=== PATIENT | male | born 1955 | race Caucasian/White ===

== ENCOUNTER 2018-02-28 14:59 | Emergency (ER) | payer BC ==
[~2018-02-28] VITALS: Ht 165.1 cm; Wt 68.3 kg
[~2018-02-28 14:59] MED LIST: AMIT25TA9 PO; LIP40 PO; LISI-604 PO
[2018-02-28] MEDS ORDERED: ASPIRIN 81MG TABLET PO ONE (16:30)
[2018-02-28 16:38] LABS: BASOPHILS % 0.4 % (0.0-2.0); EOSINOPHILS % 1.2 % (0.0-5.0); HEMATOCRIT. 48.1 % (42.0-52.0); HEMOGLOBIN. 16.7 g/dL (14.0-18.0); LYMPHOCYTES % 29.2 % (20.0-50.0); MEAN CORPUSCULAR HEMOGLOBIN 33.2 pg (28.0-32.0); MEAN CORPUSCULAR VOLUME 95.6 fL (80.0-94.0); MONOCYTES % 6.2 % (2.0-8.0); PLATELET 255 x1000/uL (130-400); RED BLOOD CELL COUNT 5.03 mill/uL (4.7-6.1); RED CELL DISTRIBUTION WIDTH 14.3 % (11.6-14.6)
[2018-02-28 16:44] LABS: CHLORIDE 106 mEq/L (98-107)
[2018-02-28 16:45] LABS: PARTIAL THROMBOPLASTIN TIME 25.2 sec (23.4-31.0); PROTHROMBIN TIME 10.4 sec (9.1-11.1)
[2018-02-28] MEDS ORDERED: LORAZEPAM 2MG/ML CPJ IV NR (17:30)
[2018-02-28 21:05] VITALS: BP 132/84
== END 2018-02-28 21:17 | disposition home or self-care (01) ==
LOC: ER 14:59
DX: R07.9 Chest pain, unspecified (principal); F41.9 Anxiety disorder, unspecified; I10 Essential (primary) hypertension; E78.00 Pure hypercholesterolemia, unspecified; I25.2 Old myocardial infarction; F32.9 Major depressive disorder, single episode, unspecified; M19.90 Unspecified osteoarthritis, unspecified site; Z79.899 Other long term (current) drug therapy
CPT/HCPCS: 36415; 71045; 80053; 84484; 85025; 85610; 85730; 93005; 96374; 99285; J2060; Z7610